=== PATIENT | male | born 1970 | race Caucasian/White ===

== ENCOUNTER → 2017-08-28 | Outpatient (CLI) | payer BC ==
--- NOTE | 2017-08-28 08:56 | US ---
EXAMINATION TYPE: US kidneys/renal and bladder DATE OF EXAM: 08/28/2017 COMPARISON: US 04/16/2014 CLINICAL HISTORY: 46-year-old male R10.9 Left Flank Pain. Technique: Multiple sonographic images of the kidneys and bladder are obtained. FINDINGS: EXAM MEASUREMENTS: Right Kidney: 11.5 x 5.0 x 4.7 cm Left Kidney: 11.7 x 5.6 x 4.9 cm Right Kidney: No hydronephrosis. Left Kidney: Simple cysts visualized lower pole measuring 3.1 x 3.5 x 3.2 cm. No hydronephrosis. Bladder: wnl Bilateral Jets seen: Yes Incidental finding: Two hyperechoic areas visualized visualized within the right liver lobe measuring 1.7 x 1.4 x 1.3 cm. And the second one measuring 1.2 x 1.1 x 1.3 cm. Probable hemangiomas IMPRESSION: 1. No hydronephrosis. 2. A 3.5 cm simple cyst lower pole left kidney. 3. A couple incidental echogenic lesions in the liver measuring up to 1.7 cm likely represent hemangi omas. A precautionary 6 month follow-up ultrasound can be performed.
== END | disposition home or self-care (01) ==
LOC: RADUSWWP 06:53
PROVIDERS: ATTEND Internal Medicine
DX: N28.1 Cyst of kidney, acquired (principal); K76.9 Liver disease, unspecified
CPT/HCPCS: 76770

== ENCOUNTER → 2019-03-27 | Outpatient (CLI) | payer BC ==
--- NOTE | 2019-03-27 11:06 | US ---
EXAMINATION TYPE: US abdomen complete DATE OF EXAM: 03/27/2019 COMPARISON: US 2018, CT 2012 CLINICAL HISTORY: R10.84 Gen abd pain D72.829 Leukocytosis. Abdomen pain x couple weeks EXAM MEASUREMENTS: Liver Length: 18.9 cm Gallbladder Wall: 0.2 cm CBD: 0.6 cm Spleen: 14.1 cm Right Kidney: 12.7 x 5.0 x 5.9 cm Left Kidney: 12.4 x 6.7 x 6.9 cm Pancreas: visualized portions wnl, tail limited by overlying midline bowel gas Liver: enlarged, 4 hyperechoic lesions seen throughout with largest seen in left lobe measuring 1.7 x 1.4 x 1.7cm, probable hemangiomas Gallbladder: wnl Evidence for sonographic Boggs's sign: no CBD: wnl Spleen: enlarged, 1.5 x 1.2 x 2.3cm exophytic isoechoic area, probable accessory spleen Right Kidney: wnl Left Kidney: 3.8 x 3.1 x 3.6cm cyst inferior pole Upper IVC: wnl Abd Aorta: visualized portions wnl, mid/distal portion partially obscured by overlying midline bowel gas IMPRESSION: 1. Echogenic foci within the liver most likely hemangiomas. The largest measures 1.7 cm. 2. Inferior pole left renal cyst
== END | disposition home or self-care (01) ==
LOC: RADUSWWP 09:56
PROVIDERS: ATTEND Internal Medicine
DX: N28.1 Cyst of kidney, acquired (principal)
CPT/HCPCS: 76700

== ENCOUNTER 2019-05-17 11:01 | Day surgery (SDC) | payer BC ==
[2019-05-15 10:37] VITALS: BMI 24.0
[~2019-05-17 11:01] MED LIST: LACTATED RINGERS 1,000 ML IV SCH; LIDOCAINE 1% (10MG/ML) FOR IV START INTRADERMA PRN
[2019-05-17 11:23] VITALS: RESP 16; TEMP 97.4
[2019-05-17] MEDS ORDERED: fentaNYL (PF) 50 MCG/ML 2 ML AMP ONE (11:43)
[2019-05-17] MEDS ORDERED: LIDOCAINE 1% INJ 10MG/ML (20 ML MDV) ONE (11:43)
[2019-05-17] MEDS ORDERED: PROPOFOL 10 MG/ML 20 ML VIAL IV ONE (11:43)
[2019-05-17] MEDS ORDERED: MIDAZOLAM 2 MG/2 ML VIAL ONE (11:43)
[2019-05-17] MEDS ORDERED: LIDOCAINE 2% INJ 20 MG/ML SQ ONE ×2 (11:46→11:58)
[2019-05-17 12:49] VITALS: BP 147/85; PULSE 87
--- NOTE | 2019-05-17 13:26 | PCN ---
PROCEDURE NOTE DATE OF SERVICE: May 17, 2019. PROCEDURE: Bone marrow aspirate and biopsy. INDICATION: Suspect myeloproliferative neoplasm. DESCRIPTION OF PROCEDURE: After obtaining consent from the patient, the procedure was performed in the endoscopy suite under general anesthesia performed by anesthesia team. The patient was put in the left lateral decubitus position. The right posterior superior iliac crest was localized. Skin was cleansed with ChloraPrep. All sterile procedures were followed and 2 mL of 1% Xylocaine was used for local anesthetic. The Jamshidi needle was inserted, about 15 mL of aspirate and 1.5 cm core biopsy was obtained without any difficulties. Pressure applied afterwards. There was negligible blood loss. Patient tolerated the procedure very well without any immediate complications. MMODL / IJN: [id number] /
[2019-05-17 13:38] LABS: Basophils # (A) 0.1 k/uL (0-0.2); Basophils % (A) 1 %; Eosinophils # (A) 0.3 k/uL (0-0.7); Eosinophils % (A) 2 %; HCT 49.7 % (39.0-53.0); HGB 15.9 gm/dL (13.0-17.5); Lymphocytes # (A) 1.8 k/uL (1.0-4.8); Lymphocytes % (A) 11 %; MCH 28.2 pg (25.0-35.0); MCHC 31.9 g/dL (31.0-37.0); MCV 88.5 fL (80.0-100.0); Mean Platelet Volume 8.1; Monocytes # (A) 0.9 k/uL (0-1.0); Monocytes % (A) 5 %; Neutrophils # (A) 13.8 k/uL (1.3-7.7); Neutrophils % (A) 81 %; Platelet Count 845 k/uL (150-450); RBC 5.62 m/uL (4.30-5.90); RDW 14.7 % (11.5-15.5)
[2019-05-17 19:12] LABS: Reticulocyte % 1.25 % (0.10-1.80)
== END 2019-05-17 12:58 | disposition home or self-care (01) ==
LOC: OR 11:01
PROVIDERS: ATTEND Internal Medicine Hematology & Oncology
DX: D47.1 Chronic myeloproliferative disease (principal); E78.5 Hyperlipidemia, unspecified; R80.9 Proteinuria, unspecified; I10 Essential (primary) hypertension; I25.10 Atherosclerotic heart disease of native coronary artery without angina pectoris; I25.2 Old myocardial infarction; F17.200 Nicotine dependence, unspecified, uncomplicated; Z95.5 Presence of coronary angioplasty implant and graft; Z98.890 Other specified postprocedural states; Z80.9 Family history of malignant neoplasm, unspecified; Z79.02 Long term (current) use of antithrombotics/antiplatelets; Z79.899 Other long term (current) drug therapy
CPT/HCPCS: 85025; 85045; 38222; J2001 ×2; J2250; J3010; J2704

== ENCOUNTER 2021-12-28 08:45 | Day surgery (SDC) | payer BC ==
[2021-12-24 11:22] VITALS: BMI 23.6
[2021-12-28 09:07] VITALS: TEMP 97.7
[2021-12-28] MEDS ORDERED: LIDOCAINE 2% INJ 20 MG/ML (2 ML VIAL) ONE (10:00)
[2021-12-28] MEDS ORDERED: PROPOFOL 10 MG/ML 20 ML VIAL IV ONE (10:00)
--- NOTE | 2021-12-28 10:05 | P.GSHP ---
History of Present Illness H&P Date: 12/28/21 Chief Complaint: rectal bleeding, abdominal pain 51-year-old male here today for colonoscopy. Patient has had some bright red blood per rectum. Also with some lower abdominal pain. Patient sees oncology for myeloproliferative disorder. He was on Plavix but that has been stopped. 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) Last Myocardial Infarction Date:: 2014 History of Any Multi-Drug Resistant Organisms: None Reported Past Surgical History: Heart Catheterization With Stent, Hernia Repair Additional Past Surgical History / Comment(s): inguinal hernia repair as toddler, partial amptutation rt index finger d/t injury, kidney bx, heart stent x1 Past Anesthesia/Blood Transfusion Reactions: No Reported Reaction Additional Past Anesthesia/Blood Transfusion Reaction / Comment(s): no hx blood transfusion Date of Last Stent Placement:: 2014 Past Psychological History: No Psychological Hx Reported Smoking Status: Current some day smoker Past Alcohol Use History: Occasional Additional Past Alcohol Use History / Comment(s): started smoking at age 25 smoked 1ppd Past Drug Use History: None Reported - Past Family History Father Family Medical History: Cancer, Diabetes Mellitus, Hypertension, Prostate Disorder Additional Family Medical History / Comment(s): prostate cancer, obesity Mother Family Medical History: Cancer, Diabetes Mellitus Additional Family Medical History / Comment(s): obestiy,blood cancer, lung disease Medications and Allergies Home Medications Medication Instructions Recorded Confirmed Type Atorvastatin Calcium [Lipitor] 80 mg PO DAILY 05/15/19 12/24/21 History Clopidogrel Bisulfate [Plavix] 75 mg PO DAILY 05/15/19 12/28/21 History Furosemide [Lasix] 20 mg PO DAILY 05/15/19 12/24/21 History Losartan Potassium 100 mg PO QAM 05/15/19 12/24/21 History Metoprolol Tartrate 25 mg PO BID 05/15/19 12/28/21 History amLODIPine [Norvasc] 5 mg PO QAM 05/15/19 12/24/21 History Hydroxyurea [Hydrea] 500 mg PO DAILY 12/24/21 12/24/21 History Allergies Allergy/AdvReac Type Severity Reaction Status Date / Time No Known Allergies Allergy Verified 12/24/21 11:13 Surgical - Exam Vital Signs Temp Pulse Resp BP Pulse Ox 97.7 F 85 16 120/84 96 12/28/21 09:05 12/28/21 09:05 12/28/21 09:05 12/28/21 09:05 12/28/21 09:05 Physical exam: General: Well-developed, well-nourished HEENT: Normocephalic, sclerae nonicteric Abdomen: Nontender, nondistended Extremities: No edema Neuro: Alert and oriented Assessment and Plan (1) Rectal bleeding Narrative/Plan: Will proceed with colonoscopy at this time Current Visit: Yes Status: Acute Code(s): K62.5 - HEMORRHAGE OF ANUS AND RECTUM SNOMED Code(s): 98028227
--- NOTE | 2021-12-28 10:26 | P.PCN ---
Date of Procedure: 12/28/21 Procedure(s) Performed: PREOPERATIVE DIAGNOSIS: Abdominal pain, rectal bleeding POSTOPERATIVE DIAGNOSIS: Mild inflammation ileocecal valve, small cecal polyp 2, internal and external hemorrhoids PROCEDURE: Colonoscopy with snare polypectomy and biopsy ANESTHESIA: MAC SURGEON: Rosendo Vela M.D. SPECIMENS: Polyp, ileocecal valve ENDOSCOPIC PROCEDURE: The patient was placed on the endoscopy table in the left decubitus position. The Olympus colonoscope was inserted into the anus and passed under direct visualization to the base of the cecum. The appendiceal orifice was visualized. From that point the scope was slowly withdrawn inspecting all surfaces carefully. The patient had some scattered areas of retained solid and liquid stool. There was some at the base of the cecum that was partially evacuated. The ileum appeared to be slightly prominent through the valve. I was able to inspect the distal ileum and no definite abnormalities were seen. At the junction between the ileum and the ileocecal valve there was mild inflammation in the cold biopsy was taken to rule out neoplastic changes. In the cecum there were 2 small polyps both removed using the snare with cautery technique. There was some mild inflammation seen adjacent to these polyps. The ascending transverse descending sigmoid and rectum were free of any neoplastic inflammatory or polypoid lesions. Again there were a few areas where there was solid and liquid stool present but could not be evacuated completely. At the anus there was noted to be some fresh blood present. This appeared to be from prominent internal and external hemorrhoids particularly in the right lateral position. Digital rectal examination was normal. The patient was taken to the recovery room in stable condition per anesthesia guidelines. RECOMMENDATIONS: Await biopsy results. Increase dietary fiber. If bleeding persists will have patient see me in the office to discuss possible hemorrhoidectomy. Timing of next colonoscopy based on pathologic findings.
[2021-12-28 10:48] VITALS: BP 137/88; PULSE 76; RESP 18
== END 2021-12-28 11:02 | disposition home or self-care (01) ==
LOC: ORWHC2ENDO 08:45
PROVIDERS: ATTEND Surgery
DX: K63.5 Polyp of colon (principal); K64.4 Residual hemorrhoidal skin tags; K64.8 Other hemorrhoids; R19.4 Change in bowel habit; E78.5 Hyperlipidemia, unspecified; F17.210 Nicotine dependence, cigarettes, uncomplicated; D47.1 Chronic myeloproliferative disease; I25.810 Atherosclerosis of coronary artery bypass graft(s) without angina pectoris; Z95.5 Presence of coronary angioplasty implant and graft; N18.9 Chronic kidney disease, unspecified; I12.9 Hypertensive chronic kidney disease with stage 1 through stage 4 chronic kidney disease, or unspecified chronic kidney disease; Z79.890 Hormone replacement therapy; Z79.899 Other long term (current) drug therapy; K62.5 Hemorrhage of anus and rectum; I25.2 Old myocardial infarction; Z79.02 Long term (current) use of antithrombotics/antiplatelets; Z82.49 Family history of ischemic heart disease and other diseases of the circulatory system; Z83.3 Family history of diabetes mellitus; Z83.49 Family history of other endocrine, nutritional and metabolic diseases
CPT/HCPCS: 88305; 45380; 45385; J2704; J2001